=== PATIENT | female | born 1960 | race African-American/Black ===

== ENCOUNTER 2022-06-29 20:42 | Emergency (ER) | payer SELFPAY ==
[~2022-06-29] VITALS: Ht 149.9 cm; Wt 77.0 kg
[2022-06-29] MEDS ORDERED: LORAZEPAM 2MG/ML CPJ IV ONE (21:15)
[2022-06-29 21:31] VITALS: BP 141/111
[2022-06-29 21:34] LABS: CHLORIDE 103 mEq/L (98-107)
[2022-06-29 21:36] LABS: BASOPHILS % 0.8 % (0.0-2.0); EOSINOPHILS % 4.4 % (0.0-5.0); HEMATOCRIT. 44.1 % (36.0-48.0); LYMPHOCYTES % 37.2 % (20.0-50.0); MEAN CORPUSCULAR VOLUME 90.9 fL (81.0-99.0); MONOCYTES % 9.6 % (2.0-8.0); PLATELET 231 x1000/uL (130-400); RED BLOOD CELL COUNT 4.85 mill/uL (4.2-5.4); RED CELL DISTRIBUTION WIDTH 13.9 % (11.6-14.6)
[2022-06-29] MEDS ORDERED: POTASSIUM CHLORIDE 20MEQ TABLET SR PO NR (22:00)
== END 2022-06-29 23:18 | disposition home or self-care (01) ==
LOC: ER 20:42
DX: F41.9 Anxiety disorder, unspecified (principal); R06.02 Shortness of breath; F17.210 Nicotine dependence, cigarettes, uncomplicated; Z88.0 Allergy status to penicillin
CPT/HCPCS: 36415; 71045; 80053; 83880; 85025; 93005; 96374; 99285; J2060